=== PATIENT | female | born 1945 | race Caucasian/White ===

== ENCOUNTER 2016-10-20 08:46 | Inpatient (IN) | payer MEDICARE, BC ==
[~2016-10-20] VITALS: Ht 162.6 cm; Wt 53.0 kg
[2016-10-20] MEDS ORDERED: ONDA8TAB8 SL (08:59)
[2016-10-20] MEDS ORDERED: BUPR150T3 PO (08:59)
[2016-10-20] MEDS ORDERED: TRAZ100T4 PO (08:59)
[2016-10-20] MEDS ORDERED: METR500T10 PO (09:04)
[2016-10-20] MEDS ORDERED: NEOM500 PO (09:04)
[2016-10-29] VITALS (8 sets, daily range): BP systolic 91–144; BP diastolic 52–66; PULSE 82–102; RESP 16–18; TEMP 97.6–97.9; O2SAT 98–100
[2016-10-29] MEDS ORDERED: METOPROLOL TARTRATE 25 MG TAB PO PRN (07:00)
[2016-10-29] MEDS ORDERED: LACTATED RINGER'S 1000 ML IV PRN (07:00)
[2016-10-29] MEDS ORDERED: ceFAZolin 2 GM PREMIX 50 ML IV SCH (07:00)
[2016-10-29] MEDS ORDERED: INSULIN HUMAN REGULAR 1,000 UNITS/10 ML VIAL SQ PRN (07:00)
[2016-10-29] MEDS ORDERED: SODIUM CHLORID 0.9% 500 ML IV PRN (07:00)
[2016-10-29] MEDS ORDERED: DEXT 5%-NACL 0.9% 1000 ML INJ 1,000 ML IV SCH (07:00)
[2016-10-29] MEDS ORDERED: METRONIDAZOLE 500 MG/100 ML ISONTONIC SOLN IV SCH (07:00)
[2016-10-29] MEDS ORDERED: CHLORHEXIDINE GLUCONATE 2 % 1 PACK (2 CLOTHS) TOPICAL PRN (07:00)
[2016-10-29] MEDS ORDERED: POVIDONE IODINE 5% (ANTISEPSIS KIT) 4 APPLICATIONS EACH NARE PRN (07:00)
--- NOTE | 2016-10-29 07:08 | PD.HP.UP ---
H&P Update Note The Pre-Admit History and Physical Examination regarding the above named patient was reviewed (including, but not limited to, vital signs, heart, lungs, co-morbid conditions), and upon re-examination it is noted that: the patient's condition has not significantly changed since the last examination. Rosmery Lowe MD Oct 29, 2016 07:08
[2016-10-29] MEDS ORDERED: SODIUM CHLORIDE 0.9% FLUSH 10 ML FLUSH IV FLUSH PRN (07:15)
[2016-10-29] MEDS ORDERED: HYDROmorphone HCL PF 2 MG/ML VIAL ONE (07:47)
[2016-10-29] MEDS ORDERED: SUGAMMADEX SODIUM 200 MG/2 ML VIAL IV PUSH ONE ×2 (07:47)
[2016-10-29] MEDS ORDERED: ACETAMINOPHEN 1000 MG/100 ML VIAL IV ONE (07:48)
[2016-10-29] MEDS ORDERED: FAMOTIDINE 20 MG/2 ML VIAL ONE (08:26)
[2016-10-29] MEDS ORDERED: MIDAZOLAM HCL 2 MG/2 ML VIAL ONE ×2 (08:26→17:22)
--- NOTE | 2016-10-29 09:46 | PD.OP ---
Operative Report Date of Surgery: Oct 29, 2016 Preoperative Diagnosis: (1) Colon cancer Postoperative Diagnosis: (1) Colon cancer Procedure: Urologic surgery procedures: Cystoscopy and placement of bilateral ureteral catheters Anesthesia: General Surgeon: Kiet Hanley Choker Hooker(s): None Operation and Findings: Indication for procedure: Consult intraoperatively to pass bilateral ureteral catheters to aid in visualization of this patient's ureters during her colorectal procedure. Urologic surgery procedures in detail: Concurrent with the colorectal surgeon Dr. Lowe, I proceeded with cystoscopy and placement of bilateral ureteral catheters as follows. Initially cystoscopic evaluation was performed utilizing the rigid cystoscope with the 20 Iranian sheath and 30 lens. Both right and left ureteral orifices were in correct anatomic position, effluxing clear yellow urine. There were no bladder mucosal lesions, calculi or diverticula formation. I then proceeded with passing a sensor 0.035 wire up the patient's right ureter. The wire was advanced until some resistance was met. A 6 Iranian open-ended ureteral catheter was then advanced [id number] 25 cm in a cephalad direction. With the catheter in place the wire was removed and reintroduced through a secondary side by the cystoscope. In similar fashion the contralateral side was accomplished. With both catheters and placed the wire and cystoscope were withdrawn and a 16 Iranian 10 cc Sandy catheter was placed. Both ureteral catheters were anchored to the Sandy via a connector and all 3 catheters placed to gravity drainage. This completes urologic surgery portion of combined procedures on this patient. Kiet Hanley MD Oct 29, 2016 09:46
[2016-10-29] MEDS ORDERED: NORMOSOL R INJ 3,000 ML IV ONE (12:00)
[2016-10-29] MEDS ORDERED: LACTATED RINGER'S 1000 ML INJ 1,000 ML IV ONE (12:00)
[2016-10-29] MEDS ORDERED: PHENYLEPH/NS 1000 MCG/10 ML SYR IV ONE (12:00)
[2016-10-29] MEDS ORDERED: PROPOFOL 200 MG/20 ML AMP IV ONE (12:00)
[2016-10-29] MEDS ORDERED: ONDANSETRON HCL 4 MG/2 ML VIAL IV PUSH ONE (12:00)
[2016-10-29] MEDS ORDERED: ceFAZolin INJ 1,000 MG VIAL IV ONE (13:15)
[2016-10-29] MEDS ORDERED: SODIUM CHLORIDE 0.9% FLUSH 5 ML FLUSH IVF PRN (16:45)
[2016-10-29] MEDS ORDERED: POTASSIUM CHLOR 40 MEQ PREMIX 100 ML IV PRN (16:45)
[2016-10-29] MEDS ORDERED: POTASSIUM CHLOR 20 MEQ PREMIX 100 ML IV PRN (16:45)
[2016-10-29] MEDS ORDERED: Post-op Orders (for Pharmacy) MISC XX ONE (16:45)
[2016-10-29] MEDS ORDERED: BENZOCAINE 6 MG/MENTHOL 10 MG LOZENGE BUCCAL PRN (16:45)
[2016-10-29] MEDS ORDERED: diphenhydrAMINE HCL 50 MG/ML VIAL IV PRN (16:45)
[2016-10-29] MEDS ORDERED: NALOXONE HCL 0.4 MG/ML AMP IV PRN (16:45)
[2016-10-29] MEDS ORDERED: ENALAPRILAT 1.25 MG/ML VIAL IV PRN (16:45)
[2016-10-29] MEDS ORDERED: ACETAMINOPHEN/HYDROcodone 325 MG/5 MG TAB PO PRN (16:45)
[2016-10-29] MEDS ORDERED: ENALAPRILAT 2.5 MG/2 ML VIAL IV PRN (16:45)
[2016-10-29] MEDS ORDERED: ACETAMINOPHEN 325 MG TAB PO PRN (16:45)
[2016-10-29] MEDS ORDERED: DO NOT ADM ANY ANTICOAGULANT DRUGS PRN (16:56)
[2016-10-29] MEDS ORDERED: fentaNYL CITRATE 250 MCG/5 ML AMP ONE ×2 (17:23)
[2016-10-29] MEDS ORDERED: *morphine SULFATE 8 MG/ML PERIprocedure ONLY ONE (17:33)
[2016-10-29] MEDS: D5-NS + KCL 20 MEQ INJ 1,000 ML IV SCH ×2 (17:35→23:24)
[2016-10-29] MEDS: MORPHINE SULFATE 30 MG/30 ML PCA IV SCH (17:50)
[2016-10-29 17:51] LABS: AUTOMATED NEUTROPHIL # 10.9 TH/MM3 (1.8-7.7); BASOPHIL % 0.1 % (0.0-2.0); EOSINOPHIL % 0.1 % (0.0-4.0); HEMO FLAGS DIFF FINAL; LYMPH % 3.8 % (9.0-44.0); LYMPHOCYTE # 0.5 TH/MM3 (1.0-4.8); MEAN CELL VOLUME 94.4 FL (80.0-100.0); MEAN CORPUSCULAR HEMOGLOBIN 30.5 PG (27.0-34.0); MEAN CORPUSCULAR HGB CONC 32.3 % (32.0-36.0); PLATELET COUNT 101 TH/MM3 (150-450); RED BLOOD COUNT 3.71 MIL/MM3 (4.00-5.30); RED CELL DISTRIBUTION WIDTH 14.8 % (11.6-17.2)
[2016-10-29] MEDS: metroNIDAZOLE 500 MG INJ 100 ML IV SCH (17:53)
[2016-10-29 18:09] LABS: BICARBONATE 23.6 MEQ/L (21.0-32.0); POTASSIUM 3.8 MEQ/L (3.5-5.1)
[2016-10-29] MEDS: SODIUM CHLORIDE 0.9% FLUSH 5 ML FLUSH IVF SCH (21:00)
[2016-10-29] MEDS: PCA - TOTAL MG MORPHINE DELIVERED PER SHIFT SCH (23:41)
[2016-10-30] VITALS (22 sets, daily range): BP systolic 99–120; BP diastolic 48–57; PULSE 82–109; RESP 16–18; TEMP 96.9–97.8; O2SAT 92–99
[2016-10-30] MEDS: metroNIDAZOLE 500 MG INJ 100 ML IV SCH ×2 (02:15→09:49)
[2016-10-30] MEDS: PCA - TOTAL MG MORPHINE DELIVERED PER SHIFT SCH ×3 (05:18→20:34)
[2016-10-30] MEDS: D5-NS + KCL 20 MEQ INJ 1,000 ML IV SCH ×3 (05:21→20:32)
[2016-10-30 06:09] LABS: AUTOMATED NEUTROPHIL # 11.9 TH/MM3 (1.8-7.7); BASOPHIL % 0.1 % (0.0-2.0); HEMATOCRIT 33.1 % (35.0-46.0); HEMO FLAGS DIFF FINAL; LYMPH % 6.9 % (9.0-44.0); LYMPHOCYTE # 0.9 TH/MM3 (1.0-4.8); MEAN CELL VOLUME 94.3 FL (80.0-100.0); MEAN CORPUSCULAR HEMOGLOBIN 31.8 PG (27.0-34.0); MEAN CORPUSCULAR HGB CONC 33.7 % (32.0-36.0); MONO % 6.1 % (0.0-8.0); NEUT % 86.9 % (16.0-70.0); PLATELET COUNT 109 TH/MM3 (150-450); RED CELL DISTRIBUTION WIDTH 14.9 % (11.6-17.2); WHITE BLOOD COUNT 13.7 TH/MM3 (4.0-11.0)
[2016-10-30 06:28] LABS: BICARBONATE 23.4 MEQ/L (21.0-32.0)
[2016-10-30] MEDS: SODIUM CHLORIDE 0.9% FLUSH 5 ML FLUSH IVF SCH ×2 (09:00→20:34)
[2016-10-30] MEDS ORDERED: buPROPion HCL 150 MG EXTENDED RELEASE TAB PO SCH (09:00)
[2016-10-30] MEDS: buPROPion HCL 150 MG SUSTAINED RELEASE TAB PO SCH (09:50)
[2016-10-30] MEDS: PANTOPRAZOLE SODIUM 40 MG VIAL IVP SCH (09:50)
--- NOTE | 2016-10-30 11:01 | HHI.PR ---
Subjective Remarks Reports mild nausea. No vomiting. No BMs or flatus. Sitting in chair Objective Vital Signs Date Time Temp Pulse Resp B/P Pulse Ox O2 Delivery O2 Flow Rate FiO2 10/30/16 10:00 90 10/30/16 09:00 91 10/30/16 08:27 97 21 10/30/16 08:00 85 10/30/16 07:00 97.8 92 16 105/50 95 10/30/16 07:00 91 10/30/16 06:00 88 10/30/16 05:31 18 10/30/16 05:18 18 10/30/16 05:00 96 10/30/16 04:00 94 10/30/16 03:55 105 18 110/52 99 10/30/16 03:00 91 10/30/16 02:00 94 10/30/16 01:00 96 10/30/16 00:00 88 10/29/16 23:56 93 16 139/60 98 10/29/16 23:41 16 10/29/16 23:00 102 10/29/16 22:00 18 10/29/16 22:00 84 10/29/16 21:00 88 10/29/16 21:00 97.9 92 18 144/66 98 10/29/16 20:09 100 Nasal Cannula 2.00 10/29/16 20:00 92 14 140/67 99 Nasal Cannula 2 10/29/16 19:45 85 14 147/63 99 Nasal Cannula 2 10/29/16 19:35 99 Nasal Cannula 2 10/29/16 19:30 74 12 143/70 99 Mechanical Ventilator 10/29/16 19:15 97.5 79 10 149/67 99 Mechanical Ventilator 40 10/29/16 19:00 81 10 148/64 99 Mechanical Ventilator 40 10/29/16 18:45 73 10 143/62 99 Mechanical Ventilator 40 10/29/16 18:37 40 10/29/16 18:30 97.0 73 12 145/66 99 Mechanical Ventilator 40 10/29/16 18:15 72 12 143/67 100 Mechanical Ventilator 40 10/29/16 18:00 68 12 142/65 100 Mechanical Ventilator 40 10/29/16 17:45 69 12 138/58 100 Mechanical Ventilator 40 10/29/16 17:30 64 12 141/65 100 Mechanical Ventilator 40 10/29/16 17:15 77 13 125/58 99 Mechanical Ventilator 40 10/29/16 17:14 100 40 10/29/16 17:05 96.1 10/29/16 17:00 68 12 130/67 99 Mechanical Ventilator 40 10/29/16 16:58 96.1 77 12 137/63 99 Mechanical Ventilator 40 10/29/16 16:58 40 I/O 10/29/16 10/29/16 10/29/16 10/30/16 10/30/16 10/30/16 07:00 15:00 23:00 07:00 15:00 23:00 Intake Total 3850 ml 1920 ml Output Total 730 ml 450 ml Balance 3120 ml 1470 ml Intake Oral 120 ml IV Total 350 ml 1800 ml Other 3500 ml Output Urine Total 580 ml 450 ml Estimated Blood Loss 150 ml Result Diagram: 10/30/16 0550 10/30/16 0550 Objective Remarks Abd: flat,soft,dressings dry I&Os-OK Labs-OK Assessment and Plan Assessment and Plan Stable POD#1 Transfer,ambulate,CLD today,FLD tomorrow. 1 ureteral catheter removed by me. Sandy and other catheter to be removed in AM by RNs. Tino Rodriguez MD Oct 30, 2016 11:01
[2016-10-30] MEDS: KETOROLAC TROMETHAMINE 30 MG/ML (IVP) VIAL IVP PRN ×2 (11:58→20:33)
[2016-10-30] MEDS: HEPARIN SODIUM - SQ 10,000 UNITS/ML VIAL SQ SCH (15:42)
[2016-10-30] MEDS: MORPHINE SULFATE 30 MG/30 ML PCA IV SCH (16:13)
[2016-10-30] MEDS: ONDANSETRON HCL 4 MG/2 ML VIAL IV PRN (17:13)
[2016-10-31] VITALS (7 sets, daily range): BP systolic 112–140; BP diastolic 54–63; PULSE 92–118; RESP 17–18; TEMP 97.9–98.9; O2SAT 92–95
[2016-10-31] MEDS: HEPARIN SODIUM - SQ 10,000 UNITS/ML VIAL SQ SCH ×2 (04:45→18:22)
[2016-10-31] MEDS: KETOROLAC TROMETHAMINE 30 MG/ML (IVP) VIAL IVP PRN ×3 (04:46→18:22)
[2016-10-31] MEDS: D5-NS + KCL 20 MEQ INJ 1,000 ML IV SCH ×3 (04:59→16:26)
[2016-10-31 05:37] LABS: AUTOMATED NEUTROPHIL # 8.2 TH/MM3 (1.8-7.7); BASOPHIL # 0.1 TH/MM3 (0-0.2); BASOPHIL % 0.6 % (0.0-2.0); EOSINOPHIL # 0.4 TH/MM3 (0-0.4); EOSINOPHIL % 3.3 % (0.0-4.0); HEMATOCRIT 31.7 % (35.0-46.0); LYMPH % 20.2 % (9.0-44.0); LYMPHOCYTE # 2.3 TH/MM3 (1.0-4.8); MEAN CELL VOLUME 95.2 FL (80.0-100.0); MEAN CORPUSCULAR HGB CONC 32.6 % (32.0-36.0); MONO % 4.5 % (0.0-8.0); NEUT % 71.4 % (16.0-70.0); PLATELET COUNT 91 TH/MM3 (150-450); RED BLOOD COUNT 3.33 MIL/MM3 (4.00-5.30); RED CELL DISTRIBUTION WIDTH 15.1 % (11.6-17.2); WHITE BLOOD COUNT 11.5 TH/MM3 (4.0-11.0)
[2016-10-31 05:40] LABS: HEMO FLAGS AUTO DIFF
[2016-10-31 05:55] LABS: BICARBONATE 25.8 MEQ/L (21.0-32.0); POTASSIUM 4.1 MEQ/L (3.5-5.1)
[2016-10-31] MEDS: PCA - TOTAL MG MORPHINE DELIVERED PER SHIFT SCH (06:00)
[2016-10-31 06:27] LABS: SCAN/DIFF AUTO DIFF CONFIRMED
[2016-10-31] MEDS: SODIUM CHLORIDE 0.9% FLUSH 5 ML FLUSH IVF SCH ×2 (09:00→19:49)
[2016-10-31] MEDS: ONDANSETRON HCL 4 MG/2 ML VIAL IV PRN (09:14)
[2016-10-31] MEDS: buPROPion HCL 150 MG SUSTAINED RELEASE TAB PO SCH (09:16)
[2016-10-31] MEDS: PANTOPRAZOLE SODIUM 40 MG VIAL IVP SCH (09:17)
--- NOTE | 2016-10-31 09:28 | HHI.PR ---
Subjective Remarks Reports mild nausea. But taking FLD.No vomiting. No BMs or flatus. Sitting in chair Objective Vital Signs Date Time Temp Pulse Resp B/P Pulse Ox O2 Delivery O2 Flow Rate FiO2 10/31/16 08:00 97.9 99 17 112/54 93 10/31/16 07:43 95 21 10/31/16 06:20 18 10/31/16 06:00 18 10/31/16 05:46 18 10/31/16 04:17 98.9 92 17 129/63 92 10/30/16 23:54 97.5 100 16 112/53 94 10/30/16 20:34 18 10/30/16 20:30 18 10/30/16 20:10 96.9 109 18 120/57 92 10/30/16 16:13 16 10/30/16 15:00 97.8 94 16 99/48 96 10/30/16 14:00 82 10/30/16 14:00 17 10/30/16 14:00 16 10/30/16 13:00 100 10/30/16 12:00 100 10/30/16 11:00 99 10/30/16 11:00 97.8 99 18 118/57 93 10/30/16 10:00 90 I/O 10/30/16 10/30/16 10/30/16 10/31/16 10/31/16 10/31/16 07:00 15:00 23:00 07:00 15:00 23:00 Intake Total 1920 ml 7816 ml 1448 ml Output Total 450 ml 1900 ml 630 ml Balance 1470 ml 5916 ml 818 ml Intake Oral 120 ml 1100 ml 280 ml IV Total 1800 ml 6716 ml 1168 ml Output Urine Total 450 ml 1900 ml 630 ml Result Diagram: 10/31/16 0450 10/31/16 0450 Objective Remarks Abd: flat,soft,dressings removed I&Os-OK Labs-OK Assessment and Plan Assessment and Plan Stable POD#2 Sandy D/Cd. FLD. Ambulate. D/C PREPRINT ANALYST Tino Rodriguez MD Oct 31, 2016 09:28
[2016-10-31] MEDS: ACETAMINOPHEN/HYDROcodone 325 MG/5 MG TAB PO PRN ×4 (09:36→22:28)
[2016-11-01 00:12] VITALS: BP 109/58; PULSE 91; RESP 16; TEMP 97.5; O2SAT 94
[2016-11-01] MEDS: D5-NS + KCL 20 MEQ INJ 1,000 ML IV SCH ×3 (00:47→13:14)
[2016-11-01] MEDS: HEPARIN SODIUM - SQ 10,000 UNITS/ML VIAL SQ SCH ×2 (04:05→17:17)
[2016-11-01] MEDS: ACETAMINOPHEN/HYDROcodone 325 MG/5 MG TAB PO PRN ×5 (04:06→21:30)
[2016-11-01 05:38] LABS: AUTOMATED NEUTROPHIL # 8.2 TH/MM3 (1.8-7.7); BASOPHIL % 0.3 % (0.0-2.0); EOSINOPHIL # 0.7 TH/MM3 (0-0.4); EOSINOPHIL % 6.5 % (0.0-4.0); HEMATOCRIT 32.3 % (35.0-46.0); HEMO FLAGS DIFF FINAL; LYMPHOCYTE # 1.4 TH/MM3 (1.0-4.8); MEAN CELL VOLUME 94.3 FL (80.0-100.0); MEAN CORPUSCULAR HEMOGLOBIN 31.4 PG (27.0-34.0); MEAN CORPUSCULAR HGB CONC 33.3 % (32.0-36.0); MONO % 3.5 % (0.0-8.0); NEUT % 76.7 % (16.0-70.0); PLATELET COUNT 101 TH/MM3 (150-450); RED BLOOD COUNT 3.43 MIL/MM3 (4.00-5.30); RED CELL DISTRIBUTION WIDTH 15.4 % (11.6-17.2); WHITE BLOOD COUNT 10.7 TH/MM3 (4.0-11.0)
[2016-11-01 05:59] LABS: BICARBONATE 26.9 MEQ/L (21.0-32.0)
[2016-11-01 08:00] VITALS: BP 128/64; PULSE 97; RESP 16; TEMP 98.3; O2SAT 91
[2016-11-01] MEDS: SODIUM CHLORIDE 0.9% FLUSH 5 ML FLUSH IVF SCH ×2 (08:11→19:57)
[2016-11-01] MEDS: PANTOPRAZOLE SODIUM 40 MG VIAL IVP SCH (08:11)
[2016-11-01] MEDS: buPROPion HCL 150 MG SUSTAINED RELEASE TAB PO SCH (08:11)
[2016-11-01 12:00] VITALS: BP 143/60; PULSE 104; RESP 16; TEMP 97.8; O2SAT 93
[2016-11-01] MEDS: KETOROLAC TROMETHAMINE 30 MG/ML (IVP) VIAL IVP PRN (12:03)
--- NOTE | 2016-11-01 14:24 | HHI.PR ---
Subjective Remarks POD#3 Robotic ANA PAULA, resection/reanastomosis Vazquez's Comfortable, no nausea Objective Vital Signs Date Time Temp Pulse Resp B/P Pulse Ox O2 Delivery O2 Flow Rate FiO2 11/01/16 12:00 97.8 104 16 143/60 93 11/01/16 08:00 98.3 97 16 128/64 91 11/01/16 00:12 97.5 91 16 109/58 94 10/31/16 20:35 97.9 92 17 117/56 92 10/31/16 16:00 98.8 92 18 119/63 94 I/O 10/31/16 10/31/16 10/31/16 11/01/16 11/01/16 11/01/16 07:00 15:00 23:00 07:00 15:00 23:00 Intake Total 1448 ml 120 ml 580 ml 880 ml 200 ml Output Total 630 ml 300 ml 1300 ml 700 ml 300 ml Balance 818 ml -180 ml -720 ml 180 ml -100 ml Intake Oral 280 ml 120 ml 280 ml 280 ml 200 ml IV Total 1168 ml 300 ml 600 ml Output Urine Total 630 ml 300 ml 1300 ml 700 ml 300 ml # Voids 4 # Bowel Movements 0 0 Result Diagram: 11/01/16 0505 11/01/16 0505 Objective Remarks Abdomen soft, nondistended, tender Wounds clean Assessment and Plan Assessment and Plan Advance diet [facility] Home Rosmery Powers MD Nov 01, 2016 14:24
[2016-11-01 16:33] VITALS: BP 130/67; PULSE 117; RESP 16; TEMP 96.3; O2SAT 90
[2016-11-01] MEDS: FUROSEMIDE 20 MG/2 ML VIAL IV PUSH SCH (17:18)
[2016-11-01 20:00] VITALS: BP 117/68; PULSE 99; RESP 20; TEMP 98; O2SAT 96
[2016-11-02 00:13] VITALS: BP 107/55; PULSE 85; RESP 20; TEMP 96.9; O2SAT 96
[2016-11-02] MEDS: HEPARIN SODIUM - SQ 10,000 UNITS/ML VIAL SQ SCH ×2 (05:13→15:18)
[2016-11-02] MEDS: ACETAMINOPHEN/HYDROcodone 325 MG/5 MG TAB PO PRN ×4 (05:13→19:40)
[2016-11-02] MEDS: FUROSEMIDE 20 MG/2 ML VIAL IV PUSH SCH ×2 (05:13→17:48)
[2016-11-02 08:00] VITALS: BP 119/56; PULSE 96; RESP 16; TEMP 98; O2SAT 95
[2016-11-02] MEDS: SODIUM CHLORIDE 0.9% FLUSH 5 ML FLUSH IVF SCH ×2 (09:00→19:41)
[2016-11-02] MEDS: buPROPion HCL 150 MG SUSTAINED RELEASE TAB PO SCH (09:09)
[2016-11-02] MEDS: PANTOPRAZOLE SODIUM 40 MG VIAL IVP SCH (09:10)
[2016-11-02 12:00] VITALS: BP 124/60; PULSE 98; RESP 16; TEMP 98.4; O2SAT 93
[2016-11-02 16:00] VITALS: BP 154/70; PULSE 60; RESP 17; TEMP 97.2; O2SAT 94
--- NOTE | 2016-11-02 16:06 | MP ---
cc: LADONNA CORDOVA M.D., JEFFREY A. D.O. DATE OF SURGERY October 29, 2016 PREOPERATIVE DIAGNOSIS History of the descending colon cancer, subcutaneous anterior abdominal wall nodule. POSTOPERATIVE DIAGNOSIS History of the descending colon cancer, subcutaneous anterior abdominal wall nodule. PROCEDURE Dictation ended at this point MD ROSS Harrison/KK /4:47 PM /3:58 PM
[2016-11-02 20:20] VITALS: BP 119/58; PULSE 102; RESP 16; TEMP 98.7; O2SAT 93
[2016-11-03 00:10] VITALS: BP 117/59; PULSE 98; RESP 17; TEMP 98; O2SAT 94
[2016-11-03] MEDS: ACETAMINOPHEN/HYDROcodone 325 MG/5 MG TAB PO PRN ×3 (00:11→10:03)
[2016-11-03] MEDS: HEPARIN SODIUM - SQ 10,000 UNITS/ML VIAL SQ SCH (05:12)
[2016-11-03] MEDS: FUROSEMIDE 20 MG/2 ML VIAL IV PUSH SCH (05:12)
--- NOTE | 2016-11-03 07:54 | MP ---
cc: LADONNA CORDOVA M.D., JEFFREY A. DATE OF SURGERY: 10/29/2016 PREOPERATIVE DIAGNOSIS 1. History of descending colon cancer. 2. Anterior abdominal wall subcutaneous nodule. POSTOPERATIVE DIAGNOSIS 1. History of descending colon cancer. 2. Anterior abdominal wall subcutaneous nodule. SURGEON Mynor BILINGUAL TRAINER Raymond ANESTHESIA General per ET tube. ESTIMATED BLOOD LOSS 150 cc. PROCEDURE 1. Extensive robotic/laparoscopic lysis of adhesions. 2. Robotic resection with re-anastomosis of Kaylan's pouch. 3. Excision of subcutaneous nodule. OPERATIVE INDICATIONS The patient is a 71-year-old female who had an urgent resection with Kaylan's for an obstructing colon cancer, in [place] last March. She then underwent chemotherapy and radiation and comes in today for re-anastomosis. She was noted to have a subcutaneous nodule just to the left of the lower portion of her previous midline incision and this is positive by PET scan. OPERATIVE FINDINGS The patient had adhesions throughout the peritoneal cavity of both small bowel, large bowel, omentum, and peritoneum. In addition her sigmoid was folded over two or three times and wrapped around her rectum and adherent to the left pelvic sidewall. The liver showed no signs of visible cancer. The small 1 cm nodule was removed from the left anterior abdominal wall, was firm and possibly consistent with metastatic cancer. OPERATIVE COURSE The patient was brought to the operating room and placed in the supine position. After induction of general anesthesia, the patient was placed in Marcus stirrups and all bony prominences were carefully padded. The skin of the anterior abdominal wall, as well as the perineal area, was then prepped and draped in the usual sterile fashion. Dr. Hanley then came in and performed cystoscopy with placement of bilateral ureteral catheters; please see his operative note for details. A site was then chosen for the trocars. Due to her previous surgery and her extremely small body habitus I elected to place her assist port just under the right costal margin and just to the right of the midclavicular line first. The #1 trocar was placed just inside the right anterior superior iliac spine and the camera was placed just above the umbilicus, after takedown of multiple adhesions. The #5 assist port was placed first. This was placed under direct vision using the laparoscope, and CO2 insufflation was undertaken. A brief abdominal survey was performed and immediately noted were prolific adhesions throughout the peritoneal cavity. The site for the #1 trocar was however open, and so that was placed under direct vision using the laparoscope. Extensive adhesiolysis was then performed. Eventually we were able to place our camera port as well and, after evaluation of the patient's body habitus and size, we did elect to proceed with taking down the stoma and placing the #2 port through the previous stoma site. The liver was examined and, although somewhat nodular, showed no signs of any cancer. The sigmoid and rectum were folded over and adherent down into the pelvis. The skin around the stoma was then incised sharply and, using electrocautery, dissection was carried down to the fascia of the anterior abdominal wall. The stoma was detached from the abdominal wall and replaced into the peritoneal cavity. The stoma site was then closed tightly enough to allow the 8 da Alyssa port. At this point, after discussion, we elected to proceed with the pelvic portion of the procedure with the possibility that we may need to do some more lysis of adhesions through a different docking. The robot was then docked and the adhesions in the pelvis and the lower abdomen were slowly and painstakingly dissected free. Eventually we were able to get the small bowel and the cecum up and out of the pelvis and we had good visibility. The peritoneum was opened on the right and dissection continued posteriorly down to the mid rectum and up and around to the right and the left. At this point it was noted that the superior hemorrhoidal vessels were still in place. These were dissected free circumferentially. The left ureter was clearly identified and swept away from the specimen. The white load of the Hailey endostapler was placed across the vessels. This was closed, held for 30 seconds and fired. At this point we were finally able to come down the left side of the pelvis, gradually and slowly excising the rectum and sigmoid from the left side of the pelvis. Eventually we were able to straighten out the distal bowel. She had quite a bit of sigmoid down in the pelvis but we were eventually able to straighten that out and dissect down posteriorly to the distal rectum and up and around the right and left side. A sponge stick was then placed in the rectum and a site was chosen for division of the rectum. The mesentery at this level was divided using the Harmonic scalpel and an echelon endostapler, blue load, was placed across the bowel at this level. This was closed, held for 30 seconds, fired and removed, and the specimen was tucked up and away from the lower pelvis. The 29 EEA stapler was advanced through the rectum and came up to the rectal stump actually fairly nicely, but there was one area where the tissue just looked a little dusky and a little thin so I elected to resect an additional 2-3 cm. The mesentery was dissected back this distance and a reload of the stapler was placed across the bowel at this level. This was fired and the specimen was retrieved and sent for pathology. The 29 EEA stapler was again advanced through the anus and up to the rectal stump and lay in a much nicer orientation. A small amount of fibrofatty tissue was cleared circumferentially. Attention then was turned to the descending colon which was brought down into the pelvis. It was somewhat tight at this point so it was carefully and slowly and painstakingly dissected free from its adhesions to the lateral abdominal wall. The splenic flexure had already been taken down and mostly it was free from the hepatic flexure but there was a lot of adhesions to the small bowel posteriorly. This was slowly and painstakingly dissected free until we had what I felt to be adequate length. There was some bleeding noted which took us a while to locate but finally we were able to isolate this to where I had removed some adhesions from the anterior abdominal wall, and was controlled using electrocautery. The peritoneal cavity was copiously irrigated with saline at this point until we had return of clear effluent. The robot was then undocked and the previously closed colostomy site was then opened and the specimen was retrieved. Some additional adhesions of the descending colon to the small bowel posteriorly were dissected free using electrocautery. The stomal end of the descending colon was brought up and out through the anterior abdominal wall. The bowel appeared pink and healthy along its length. A site was chosen for division of bowel, just proximal to the previous stoma. The mesentery was divided and ligated using 0 Vicryl ties and the pursestring stapling device was placed across the bowel at this level. The distal bowel was then amputated. The anvil from the 29 EEA stapler was then placed into the cut end of the bowel and the previously placed pursestring suture was then secured. This was placed back into the peritoneal cavity and the stoma site was again closed in a double layer closure using #1 PDS. CO2 insufflation was resumed and one member of the operating team then gently placed the stapler in the anus. It was advanced to the rectal stump. The spike was then advanced just posterior to the staple line. The anvil was to the spike, being careful that the stapler was not twisted. The stapler was then closed, held for 30 seconds fired, and removed, thus creating an enteroenterotomy. The anastomosis was pink and healthy circumferentially and both anastomotic rings were complete. It did however appear to have a little bit more tension on it than I had expected and so I elected to re-open the colostomy site and see if I could loosen up the descending colon an additional amount. The colostomy site was again opened and we were able to loosen up the descending bowel quite a bit until it came down and was really fairly loose posteriorly. There was no sign of any significant bleeding at this point. Air was insufflated in the rectum while a small amount of warm normal saline was placed in the pelvis, and there was no sign of any leakage noted. The posterior fascia at the colostomy site was then closed in a running fashion using #1 PDS and the anterior fascia at the colostomy site was closed in running fashion using #1 PDS. CO2 insufflation was then resumed again and the stoma lay nicely in a nice orientation, and although it plopped quite nicely it was very straight and almost appeared to have some tension on it. The peritoneum around the distal rectum was then gently brought up across the anastomosis and gently sutured in place using 3-0 Vicryl to see if we could decrease the possibility of tension. Matthew was dusted into the pelvis to prevent any additional bleeding. The 10-12 trocar in the right lower quadrant port was closed using the CrossBow device. At the umbilical / epigastric area camera port we could not get enough insufflation to safely use the CrossBow so this was closed from the skin side using 0 Vicryl. The CO2 was desufflated to the extent possible and the fascial sutures were then closed. The wounds were copiously irrigated with warm normal saline and the skin at the colostomy site was closed in a running subcutaneous fashion using 3-0 Vicryl. The trocar sites were closed in an interrupted subcutaneous fashion using 3-0 Vicryl. An incision was made sharply over the nodule and the nodule was carefully dissected free, using a combination of sharp and electrocautery dissection. This was then sent for pathology. This site was then closed in an interrupted subcuticular fashion, using 3-0 Vicryl. Steri-Strips and sterile dressings were then applied. Due to the fact that she had quite a bit of blood in her urine, both ureteral stents were left in place. A sterile dressing was then applied. All sponge, needle and instrument counts were correct. The patient was returned to the post-anesthesia care unit in stable condition. MD ROSS Harrison/OFELIA /4:54 PM /7:19 AM [place]
[2016-11-03 08:00] VITALS: BP 118/57; PULSE 96; RESP 16; TEMP 98.2; O2SAT 93
[2016-11-03] MEDS: SODIUM CHLORIDE 0.9% FLUSH 5 ML FLUSH IVF SCH (09:00)
[2016-11-03] MEDS: buPROPion HCL 150 MG SUSTAINED RELEASE TAB PO SCH (10:02)
[2016-11-03] MEDS: PANTOPRAZOLE SODIUM 40 MG VIAL IVP SCH (10:03)
[2016-11-03 12:00] VITALS: BP 124/57; PULSE 91; RESP 16; TEMP 96.8; O2SAT 95
--- NOTE | 2016-11-03 13:15 | HHI.PR ---
Subjective Remarks POD#5 Robotic ANA PAULA, resection/reanastomosis Vazquez's Comfortable Objective Vital Signs Date Time Temp Pulse Resp B/P Pulse Ox O2 Delivery O2 Flow Rate FiO2 11/03/16 12:00 96.8 91 16 124/57 95 11/03/16 08:00 98.2 96 16 118/57 93 11/03/16 06:12 16 11/03/16 00:10 98.0 98 17 117/59 94 11/02/16 20:20 98.7 102 16 119/58 93 11/02/16 16:00 97.2 60 17 154/70 94 I/O 11/02/16 11/02/16 11/02/16 11/03/16 11/03/16 11/03/16 07:00 15:00 23:00 07:00 15:00 23:00 Intake Total 120 ml 600 ml 380 ml Output Total 800 ml 2000 ml 800 ml Balance -680 ml -1400 ml -420 ml Intake Oral 120 ml 600 ml 380 ml Output Urine Total 800 ml 2000 ml 800 ml # Voids 4 # Bowel Movements 0 0 Result Diagram: 11/01/16 0505 11/01/16 0505 Objective Remarks Abdomen soft, nondistended, tender Wounds clean Assessment and Plan Assessment and Plan Doing well, home today Rosmery Lowe MD Nov 03, 2016 13:15
[2016-11-03] MEDS ORDERED: PERC5TAB12 PO (13:17)
--- NOTE | 2016-11-09 10:54 | MD ---
cc: LADONNA CORDOVA M.D. ADMISSION DATE: 10/29/2016 DISCHARGE DATE: 11/03/2016 ADMISSION DIAGNOSIS Sigmoid colon cancer. DISCHARGE DIAGNOSIS Sigmoid colon cancer. PROCEDURES: Robotic resection with reanastomosis of Kaylan's with extensive lysis of adhesions and excision of abdominal wall nodule. Cystoscopy with placement of bilateral ureteral catheters. HOSPITAL COURSE The patient is a 71-year-old female who has a history of having had an obstructed descending colon cancer with resection elsewhere. She came to the hospital on October 29, 2016 after an outpatient bowel prep. She was taken to the operating room where she underwent the above-named procedures. Postoperatively, she had gradual return of bowel and bladder function and she was discharged to home on postop day #5 with instructions to follow-up with myself in the office. Final pathology was not available at the time of her discharge. MD ROSS Harrison/nikita /1:18 PM /10:51 AM [email or web address]
== END 2016-11-03 15:48 | disposition home or self-care (01) | DRG 331 ==
LOC: HSDI 10-29 06:27 → EDUNIT# 10-29 07:00 → HCIS 10-29 20:35 → N07B 10-30 16:37
PROVIDERS: ADMIT Colon & Rectal Surgery; ATTEND Colon & Rectal Surgery
PROC: 0DBP0ZZ Excision of Rectum, Open Approach (ICD-10-PCS; 2016-10-29)
PROC: 0DNE0ZZ Release Large Intestine, Open Approach (ICD-10-PCS; 2016-10-29)
PROC: 0DN80ZZ Release Small Intestine, Open Approach (ICD-10-PCS; 2016-10-29)
PROC: 0DNW4ZZ Release Peritoneum, Percutaneous Endoscopic Approach (ICD-10-PCS; 2016-10-29)
PROC: 0T9880Z Drainage of Bilateral Ureters with Drainage Device, Via Natural or Artificial Opening Endoscopic (ICD-10-PCS; 2016-10-29)
PROC: 0D1M0Z4 Bypass Descending Colon to Cutaneous, Open Approach (ICD-10-PCS; principal; 2016-10-29 08:40)
PROC: 0WBF0ZZ Excision of Abdominal Wall, Open Approach (ICD-10-PCS; 2016-10-29 08:40)
DX: Z43.3 Encounter for attention to colostomy (principal); K66.0 Peritoneal adhesions (postprocedural) (postinfection); R22.2 Localized swelling, mass and lump, trunk; Z85.038 Personal history of other malignant neoplasm of large intestine; Z92.21 Personal history of antineoplastic chemotherapy; Z92.3 Personal history of irradiation; R11.0 Nausea
CPT/HCPCS: 80048; 85025; 86850; 86900; 86901; 88304; 88305; 88307; 88309; 94002; 94150; 94620; C1769; C9113; J0131; J0690; J1170; J1200; J1642; J1644; J1885; J1940; J2250; J2270; J2370; J2405; J3010; J3480; J7120

== ENCOUNTER → 2016-10-20 | Outpatient (CLI) | payer MEDICARE, BC ==
[~2016-10-20] MED LIST: BUPR150T3 PO; METR500T10 PO; NEOM500 PO; ONDA8TAB8 SL; PERC5TAB12 PO; TRAZ100T4 PO
[2016-10-20 09:49] LABS: AUTOMATED NEUTROPHIL # 3.2 TH/MM3 (1.8-7.7); BASOPHIL # 0.1 TH/MM3 (0-0.2); BASOPHIL % 0.9 % (0.0-2.0); EOSINOPHIL # 0.4 TH/MM3 (0-0.4); EOSINOPHIL % 6.2 % (0.0-4.0); HEMO FLAGS DIFF FINAL; LYMPH % 27.1 % (9.0-44.0); LYMPHOCYTE # 1.6 TH/MM3 (1.0-4.8); MEAN CELL VOLUME 94.8 FL (80.0-100.0); MEAN CORPUSCULAR HEMOGLOBIN 31.5 PG (27.0-34.0); MEAN CORPUSCULAR HGB CONC 33.3 % (32.0-36.0); NEUT % 53.8 % (16.0-70.0); PLATELET COUNT 119 TH/MM3 (150-450); RED BLOOD COUNT 4.43 MIL/MM3 (4.00-5.30); RED CELL DISTRIBUTION WIDTH 15.9 % (11.6-17.2)
[2016-10-20 10:02] LABS: APTT (PATIENT) 28.6 SEC (24.3-30.1); PROTHROMBIN TIME - PATIENT 10.7 SEC (9.8-11.6)
[2016-10-20 10:17] LABS: ALKALINE PHOSPHATASE 250 U/L (45-117); ALT (GPT) 66 U/L (10-53); ANION GAP 6 MEQ/L (5-15); AST (GOT) 54 U/L (15-37); BICARBONATE 29.6 MEQ/L (21.0-32.0); BLOOD UREA NITROGEN 14 MG/DL (7-18); CHLORIDE 105 MEQ/L (98-107); GLOMERULAR FILTRATION RATE 70 ML/MIN (>89); GLUCOSE,FASTING 100 MG/DL (74-99); POTASSIUM 3.7 MEQ/L (3.5-5.1); SODIUM (NA) 141 MEQ/L (136-145); TOTAL BILIRUBIN ADULT 0.3 MG/DL (0.2-1.0)
--- NOTE | 2016-10-20 10:19 | RADRPT ---
EXAM DATE/TIME: 10/20/2016 09:45 [place] COMPARISON: No previous studies available for comparison. INDICATIONS : Evaluate for pneumonia, pneumothorax or communicable disease. Pre op for reversal of -37-10 MEDICAL HISTORY : Carcinoma, colon. SURGICAL HISTORY : Hysterectomy. section. port for chemotherapy for colon cancer. ENCOUNTER: Initial ACUITY: 1 day PAIN SCORE: 0/10 LOCATION: Bilateral chest FINDINGS: PA and lateral views of the chest demonstrate lungs to be somewhat hyperinflated but clear. There are no effusions. Bilateral rim calcified breast augmentation. Dextroscoliosis of the thoracolumbar spin e with associated degenerative changes. Right IJ Lgonjc-p-Ymvs catheter with the tip projecting over the central venous system. Heart size is normal. CONCLUSION: No acute cardiopulmonary process. Bright Sánchez MD on October 20, 2016 at 10:13 Board Certified Radiologist. This report was verified electronically.
[2016-10-20 11:00] LABS: BLOOD, URINE NEG (NEG); GLUCOSE,URINE NEG (NEG); HYALINE CAST, URINE 1 /lpf (RARE); KETONE, URINE NEG (NEG); MUCUS URINE FEW /lpf (OCC); NITRITE,URINE NEG (NEG); PH, URINE 6.5 (5.0-8.5); SQUAMOUS EPITHELIAL CELL URINE 2 /hpf (0-5); URINE COLOR YELLOW (YELLW/STRAW)
[2016-10-20 11:14] LABS: COMMENT (UR) CULT NOT INDICATED; CULTURE IF INDICATED CULT NOT INDICATED
== END ==
LOC: CPRE 08:40
PROVIDERS: ATTEND Colon & Rectal Surgery
DX: Z01.811 Encounter for preprocedural respiratory examination (principal); Z01.812 Encounter for preprocedural laboratory examination; Z85.038 Personal history of other malignant neoplasm of large intestine
CPT/HCPCS: 36415; 71020; 80053; 81001; 82378; 85025; 85610; 85730